=== PATIENT | male | born 1950 | race Caucasian/White ===

== ENCOUNTER 2023-11-02 06:38 | Observation (INO) ==
--- NOTE | 2023-08-24 10:44 | PAT Medication Instructions ---
Medication Instructions Date of Service August 24, 2023 Home Medications acetaminophen 325 mg tablet (Tylenol) 325 mg PO QID PRN Pain amlodipine 5 mg tablet 5 mg PO HS aspirin 81 mg tablet,delayed release (Adult Low Dose Aspirin) 81 mg PO QAM atorvastatin 40 mg tablet 40 mg PO HS carvedilol 25 mg tablet 50 mg PO BID ramipril 10 mg capsule 10 mg PO BID Allergy Pill 1 tab PO DAILY PRN Allergy Symptoms fluticasone propionate 50 mcg/actuation nasal spray,suspension 2 spray intranasal DAILY PRN Congestion MEDICATION INSTRUCTIONS: Continue as directed fluticasone propionate 50 mcg/actuation nasal spray,suspension 2 spray intranasal DAILY PRN Congestion ASK your prescriber and surgeon aspirin 81 mg tablet,delayed release (Adult Low Dose Aspirin) 81 mg PO QAM DO NOT take the morning of surgery ramipril 10 mg capsule 10 mg PO BID Allergy Pill 1 tab PO DAILY PRN Allergy Symptoms Take morning of surgery With a small sip of water, OTHERWISE NOTHING TO EAT OR DRINK AFTER MIDNIGHT: carvedilol 25 mg tablet 50 mg PO BID acetaminophen 325 mg tablet (Tylenol) 325 mg PO QID PRN Pain Take evening before surgery carvedilol 25 mg tablet 50 mg PO BID acetaminophen 325 mg tablet (Tylenol) 325 mg PO QID PRN Pain atorvastatin 40 mg tablet 40 mg PO HS amlodipine 5 mg tablet 5 mg PO HS ramipril 10 mg capsule 10 mg PO BID Other Notes If you have any questions please call us at [phone] or [phone] or [phone] or [phone]
--- NOTE | 2023-09-10 14:42 | Anesthesiology Consultation ---
Date of Service September 10, 2023 Assessment & Plan (1) Encounter for pre-operative examination: Chart Review Chart Review: Acceptable Risk for Surgery (pending response from PCP regarding abnormal CXR ) and Patient seen in Pre Admission Testing - Please send optimization form to PCP re: abnormal CXR- will need response (Dr. Heladio Fang) - Discussed cardiac history with Dr. Whitehead- patient's 03/2023 ECHO showed no acute issues; follows routinely with cardio- patient can proceed as scheduled. - Patient is NOT an ideal OPJ candidate (currently 23 hour obs) Per PAT appt on 09/10/23, no recent illness/disease exposures, illness related symptoms, or recent illness/disease positive tests. Will leave to surgeon's discretion if preop Covid testing needed Patient last seen by cardiology 04/17/23= Seen for follow up on CAD. CAD- s/p 5 vessel CABG 2009. No anginal complains. EKG reviewed. No change from previous studies. On appropriate medical therapy. Hx of ischemic CM- resolved. EF 03/2023 with normal EF. Cardiac risk factors (HTN and HLD)- management through PCP. Continue current meds. Follow up in one year History Surgery Operation Date: 10/12/23 11:30 Proposed Procedures p Left Anterior Total Hip Arthroplasty - Shane Hicks, DO Height/Weight Height: 5 ft 10 in Weight: 128.5 kg Allergies Allergy/AdvReac Type Severity Reaction Status Date / Time cefuroxime [From Ceftin] Allergy Intermediate Rash Verified 08/23/23 15:02 Corticosteroids Allergy Itching Verified 09/10/23 14:44 (Glucocorticoids) Medications Home Medications Medication Instructions Recorded Confirmed Last Taken acetaminophen 325 mg tablet 325 mg PO QID PRN Pain 08/07/23 08/23/23 Unknown (Tylenol) amlodipine 5 mg tablet 5 mg PO HS 08/07/23 08/23/23 Unknown aspirin 81 mg tablet,delayed 81 mg PO QAM 08/07/23 08/23/23 Unknown release (Adult Low Dose Aspirin) atorvastatin 40 mg tablet 40 mg PO HS 08/07/23 08/23/23 Unknown carvedilol 25 mg tablet 50 mg PO BID 08/07/23 08/23/23 Unknown ramipril 10 mg capsule 10 mg PO BID 08/07/23 08/23/23 Unknown Allergy Pill 1 tab PO DAILY PRN Allergy Symptoms 08/23/23 08/23/23 Unknown fluticasone propionate 50 2 spray intranasal DAILY PRN 08/23/23 08/23/23 Unknown mcg/actuation nasal Congestion spray,suspension Past Medical History Medical History (Updated 09/11/23 @ 15:28 by Amy Denis PA-C) CAD (coronary artery disease) s/p 5 vessel CABG with aneurysm repair 2009 Hyperlipidemia Hypertension Left ventricular aneurysm s/p repair with 5 vessel CABG 2009 Leukemia in remission dx 2014, had chemo at [facility] and then maintenance chemo in [place]; currently in remission for since ~2020 Sleep apnea unable to tolerate device Exercise / Class Metabolic Activity III < 4 Walking/Shop/Light housework (no chest pain or SOB with flat surface ambulation ) Past Surgical History Surgical History (Updated 09/06/23 @ 10:21 by Amy Denis PA-C) History of bone marrow biopsy History of cardiac cath 2009, heart symptoms, ph [facility], no stents>scheduled for CABG x5 vessels; f/u ph [place] cardio. History of esophagogastroduodenoscopy (EGD) Hx laparoscopic cholecystectomy Hx of bilateral cataract extraction Hx of CABG 2009, ph [facility], x5 vessels + aneurysm repair; f/u ph [place] cardiology Hx of colonoscopy Hx of tonsillectomy Hx of umbilical hernia repair Past Anesthesia History No Hx of Anesthesia Complications and No Family Hx of Anesthesia Complications History of PONV No Hx of PONV and No Hx of Motion Sickness Social History Smoking Status: Former smoker Do You Dip or Chew Tobacco: No (quit 2014; advised) Smoking End Date: 2014 Hx Alcohol Use: Yes (quit 1995) Hx Substance Use: No substance use type: does not use Review of Systems - Occ reflux- diet dependent- improved with OTC antacids - Hx of blood transfusions - during chemo treatments Patient denies chest pain, shortness of breath, dyspnea on exertion, cough, wheezing, palpitations. No hx of seizures, stroke, AL. No hx of blood clots Physical Exam Vital Signs VITALS BP 145/68 P 60 TEMP 98.2 SP02 95% RESP 16 Constitutional no acute distress ENMT Mouth: no TMJ clicking Thyromental Distance: > or= 3.5 Finger Breadths (3.5) Mallampati Class: III Mouth / Teeth: 2 1. Small chip/crack- getting fixed 09/19/23 Missing molars/side tooth Neck + limited neck extension (mild) Respiratory normal respiratory effort; no respiratory distress Auscultation: lungs clear to auscultation bilaterally; no wheezes Cardiovascular Rate/Rhythm: regular rate and regular rhythm Heart Sounds: no murmur Vessels: no carotid bruit Musculoskeletal Spine: no pain with cervical ROM Extremities: extremities normal to inspection Psychiatric Orientation: alert Lab Results Anesthesia Preop Results Results Anesthesia Widget: 2 WBC 7.79 K/ul (4.8-10.8) 09/10/23 Hgb 15.2 g/dl (14.0-18.0) 09/10/23 Hct 43.1 % (42.0-52.0) 09/10/23 Plt 121 K/uL (130-400) L 09/10/23 Na 138 mmol/L (136-145) 09/10/23 K 4.2 mmol/L (3.5-5.1) 09/10/23 Cl 105 mmol/L (98-107) 09/10/23 CO2 29 mmol/L (21-32) 09/10/23 BUN 16 mg/dl (6-23) 09/10/23 Creat 0.95 mg/dl (0.6-1.4) 09/10/23 Glucose Level 97 mg/dl (70-99(Fasting)) 09/10/23 PT 11.5 Seconds (9.0-12.0) 09/10/23 PTT 26 Seconds (21-31) 09/10/23 INR 1.1 (0.9-1.1) 09/10/23 Blood Type A Positive 09/10/23 Antibody Screen NEGATIVE 09/10/23 Testing Laboratory Results 08/17/23= HGB A1C: 6.1 Electrocardiogram Date: 09/10/23 Findings: + SB @ (58bpm) LAFB Possible inferior infarct, age undetermined Anterolateral infarct, age undetermined (Patient had EKG 04/17/23 at cardio appt that per cardio "reveals sinus bradycardia, old inferior/anterior infarct, IVCD, and ST abnormalities which are unchanged compared to previous studies") Chest X-Ray Date: 09/10/23 FINDINGS: PA and lateral chest radiographs are obtained. No prior studies are available for comparison at the time of dictation. The patient is status post midline sternotomy. The heart is enlarged noting atherosclerotic calcification of the thoracic aorta. The pulmonary vasculature is noncontrast. There are scattered calcified granulomas. Indeterminate airspace opacities project over the left upper lung. No lobar consolidation or pleural effusion is identified. There is no pneumothorax. The skeletal structures are osteopenic. The bony thorax appears intact. Post cystectomy clips are noted in the upper abdomen. IMPRESSION: 1. Cardiomegaly without radiographic evidence of congestive failure. 2. Indeterminate airspace opacities project over the left upper lung. A follow- up chest CT is recommended for further assessment. Echocardiogram Date: 04/09/23 EF: 55% LV Function: normal RWMA: + none Other Findings: + diastolic dysfunction (Grade II); no LVH RVSP 30mmHg Mildly calcified MV annulus AV thickening consistent with sclerosis. No evidence of AV stenosis
--- NOTE | 2023-10-11 07:20 | History & Physical Report ---
Date of Service October 11, 2023 Assessment & Plan (1) Osteoarthritis of left hip: We will proceed with a left anterior total of arthroplasty. Postoperatively he will be started on aspirin for DVT prophylaxis and kept overnight in the hospital for postop medical management. He plans to go to [facility] therapy upon discharge. History of Present Illness Chief Complaint: Osteoarthritis left hip. Primary Care Provider: Heladio Cardenas is a pleasant 73-year-old male, who has been dealing with chronic increasing left hip and groin pain. It bothers him when he gets in and out of a car. It hurts walking up and down stairs. It is pretty much affecting his daily life and his quality of life. He has been seeing another provider. He mcdonald s had conservative treatment including injections, therapy, activity modifications, and anti-inflammatories. Unfortunately, he is still struggling with the hip. MRI and clinical examination been diagnostic for advanced arthritis of the left hip. After failing conservative treatment, he has elected to proceed with a left total hip arthroplasty. Allergies Allergy/AdvReac Type Severity Reaction Status Date / Time cefuroxime [From Ceftin] Allergy Intermediate Rash Verified 08/23/23 15:02 Corticosteroids Allergy Itching Verified 09/10/23 14:44 (Glucocorticoids) Home Medications Medication Instructions Recorded Confirmed Type acetaminophen 325 mg tablet 325 mg PO QID PRN Pain 08/07/23 08/23/23 History (Tylenol) amlodipine 5 mg tablet 5 mg PO HS 08/07/23 08/23/23 History aspirin 81 mg tablet,delayed 81 mg PO QAM 08/07/23 08/23/23 History release (Adult Low Dose Aspirin) atorvastatin 40 mg tablet 40 mg PO HS 08/07/23 08/23/23 History carvedilol 25 mg tablet 50 mg PO BID 08/07/23 08/23/23 History ramipril 10 mg capsule 10 mg PO BID 08/07/23 08/23/23 History Allergy Pill 1 tab PO DAILY PRN Allergy Symptoms 08/23/23 08/23/23 History fluticasone propionate 50 2 spray intranasal DAILY PRN 08/23/23 08/23/23 History mcg/actuation nasal Congestion spray,suspension Past Med/Surg History Problem List Osteoarthritis of left hip Medical History Left ventricular aneurysm s/p repair with 5 vessel CABG 2009 CAD (coronary artery disease) s/p 5 vessel CABG with aneurysm repair 2009 Leukemia in remission dx 2014, had chemo at [place] and then maintenance chemo in [place]; currently in remission for since ~2020 Sleep apnea unable to tolerate device Hyperlipidemia Hypertension Surgical History History of bone marrow biopsy Hx of umbilical hernia repair Hx laparoscopic cholecystectomy History of esophagogastroduodenoscopy (EGD) Hx of colonoscopy Hx of bilateral cataract extraction Hx of tonsillectomy History of cardiac cath 2009, heart symptoms, ph [facility], no stents>scheduled for CABG x5 vessels; f/u ph [place] cardio. Hx of CABG 2009, ph [facility], x5 vessels + aneurysm repair; f/u ph [place] cardiology Social History Smoking Status: Former smoker Smoking End Date: 2014; Second Hand Exposure: No (hx); Do You Dip or Chew Tobacco: No (quit 2014; advised); Tobacco Cessation Education Requested by Patient: No Hx Alcohol Use: Yes (quit 1995) Hx Substance Use: No Preferred Language: Amharic Communication Ability: Effective Conflicts Analyst Required: No Beliefs That Will Affect Care: None Current Living Situation: Spouse Other Information That Helps Us Care for You: No Feels Safe at Home: Yes Safety Concerns: Feels Safe At This Time Assistive Devices: Glasses Review of Systems All systems reviewed & are unremarkable except as noted in HPI & below. Physical Exam On physical examination left hip, he has decreased range of motion. He has pain with forced internal and external rotation. All of his pain is located in the groin.. Constitutional WD/WN, vitals as above Eyes PERRL, conjunctivae normal, anicteric sclerae ENMT external ear and nose normal, oropharynx normal Neck trachea midline, no thyromegaly Respiratory normal respiratory effort Cardiovascular RRR, no murmur, no edema Gastrointestinal (Abdomen) normal bowel sounds, soft, nontender, no hepatosplenomegaly Psychiatric A+Ox3, euthymic affect Results & Data Results & Data Laboratory Results . Diagnostic Findings X-rays and MRI of the left hip show advanced osteoarthritis with joint space narrowing osteophyte formation and [id number] tubulation. PG Care Time/CCT Total # of Minutes Spent Total Time Spent with Patient: Total time spent is greater than 50% in coordination of care (as documented) at patient's floor/unit and/or counseling patient: Coding Level of Care Code None Diagnoses Osteoarthritis of left hip M16.12
--- NOTE | 2023-11-01 12:30 | History & Physical Report ---
Date of Service November 01, 2023 Assessment & Plan (1) Osteoarthritis of left hip: We will proceed with the left anterior total of arthroplasty. Postoperatively he will be started on aspirin for DVT prophylaxis and kept overnight in the hospital for postop medical management. He plans to use [facility] physical therapy upon discharge. History of Present Illness Chief Complaint: Osteoarthritis of the left hip. Primary Care Provider: Heladio Cardenas is a pleasant 73-year-old male, who has been dealing with chronic increasing left hip and groin pain. It bothers him when he gets in and out of a car. It hurts walking up and down stairs. It is pretty much affecting his daily life and his quality of life. He has been seeing another provider. He has had conservative treatment including injections, therapy, activity modifications, and anti-inflammatories. Unfortunately, he is still struggling with the hip. X-rays include a examination be diagnostic for advanced arthritis of the left hip. After failed conservative treatment, he has elected to proceed with a left anterior total of arthroplasty. Allergies Allergy/AdvReac Type Severity Reaction Status Date / Time cefuroxime [From Ceftin] Allergy Intermediate Rash Verified 10/30/23 08:42 Corticosteroids Allergy Mild Itching Verified 10/30/23 08:42 (Glucocorticoids) prednisone Allergy skin Verified 10/30/23 09:32 redness and itching Home Medications Medication Instructions Recorded Confirmed Type acetaminophen 325 mg tablet 325 mg PO QID PRN Pain 08/07/23 10/30/23 History (Tylenol) amlodipine 5 mg tablet 5 mg PO HS 08/07/23 10/30/23 History aspirin 81 mg tablet,delayed 81 mg PO QAM 08/07/23 10/30/23 History release (Adult Low Dose Aspirin) atorvastatin 40 mg tablet 40 mg PO HS 08/07/23 10/30/23 History carvedilol 25 mg tablet 50 mg PO BID 08/07/23 10/30/23 History ramipril 10 mg capsule 10 mg PO BID 08/07/23 10/30/23 History fluticasone propionate 50 2 spray intranasal DAILY PRN 08/23/23 10/30/23 History mcg/actuation nasal Congestion spray,suspension levocetirizine 5 mg tablet (Xyzal) 5 mg PO DAILY PRN allergies 10/30/23 10/30/23 History Past Med/Surg History Problem List Osteoarthritis of left hip Medical History Osteoarthritis of left hip Left ventricular aneurysm s/p repair with 5 vessel CABG 2009 CAD (coronary artery disease) s/p 5 vessel CABG with aneurysm repair 2009 Leukemia in remission dx 2014, had chemo at [place] and then maintenance chemo in [place]; currently in remission for since ~2020 Sleep apnea unable to tolerate device Hyperlipidemia Hypertension Surgical History History of bone marrow biopsy Hx of umbilical hernia repair Hx laparoscopic cholecystectomy History of esophagogastroduodenoscopy (EGD) Hx of colonoscopy (2014) Hx of bilateral cataract extraction Hx of tonsillectomy History of cardiac cath (2009) 2009, heart symptoms, ph [facility], no stents>scheduled for CABG x5 vessels; f/u ph [place] cardio. Hx of CABG (2009) 2009, ph [facility], x5 vessels + aneurysm repair; f/u [facility] cardiology Social History Smoking Status: Former smoker Smoking End Date: smoked and chewed snuff, quit 2014 (> 1 ppd); Second Hand Exposure: No; Do You Dip or Chew Tobacco: No; Tobacco Cessation Education Requested by Patient: No Hx Alcohol Use: No Hx Substance Use: No Preferred Language: Wolof Communication Ability: Effective Certified Pharmacy Technician Required: No Beliefs That Will Affect Care: None Current Living Situation: Spouse Other Information That Helps Us Care for You: No Feels Safe at Home: Yes Safety Concerns: Feels Safe At This Time Assistive Devices: Glasses Assistive Devices Comment: readers Review of Systems All systems reviewed & are unremarkable except as noted in HPI & below. Physical Exam Physical examination of the left hip shows decreased range of motion and pain with internal and external rotation.. Constitutional WD/WN, vitals as above Eyes PERRL, conjunctivae normal, anicteric sclerae ENMT external ear and nose normal, oropharynx normal Neck trachea midline, no thyromegaly Respiratory normal respiratory effort Cardiovascular RRR, no murmur, no edema Gastrointestinal (Abdomen) normal bowel sounds, soft, nontender, no hepatosplenomegaly Psychiatric A+Ox3, euthymic affect Results & Data Results & Data Laboratory Results . Diagnostic Findings X-rays of the left hip show advanced osteoarthritis with joint space narrowing, osteophyte formation, and [id number] articulation PG Care Time/CCT Total # of Minutes Spent Total Time Spent with Patient: Total time spent is greater than 50% in coordination of care (as documented) at patient's floor/unit and/or counseling patient: Coding Level of Care Code None Diagnoses Osteoarthritis of left hip M16.12
[~2023-11-02 06:38] MED LIST: ACETAMINOPHEN 500 MG TAB PO SCH; ALLERGY Noted to ORDERED Medication SCH; BUPIVACAINE 0.5 % 5 MG/1 ML PF 10ML VIAL ONE; FAMOTIDINE 20 MG TAB PO SCH; GABAPENTIN 300 MG CAP PO SCH; LR 500ML BOLUS, THEN 15ML/HR IV SCH; LR 60ML/HR IV SCH; ROPIV 0.5% 246mg, Ketorolac 30mg, EPINEPHrine 0.5mg in NSS INFIL SCH; TRANEXAMIC ACID 1,000 MG **IV Intra-op IV SCH; TRANEXAMIC ACID 1,000 MG **IV Pre-op IV SCH; ceFAZolin 3000MG 3,000 MG/72.5 ML BAG IV SCH; dexAMETHasone**PF** 10 MG/ML VIAL IV SCH
[2023-11-02] MEDS: ACETAMINOPHEN 500 MG TAB PO SCH ×2 (07:30→15:31)
[2023-11-02] MEDS: LR 500ML BOLUS, THEN 15ML/HR IV SCH (07:30)
[2023-11-02] MEDS: LR 60ML/HR IV SCH (07:30)
[2023-11-02] MEDS: FAMOTIDINE 20 MG TAB PO SCH (07:30)
[2023-11-02] MEDS: GABAPENTIN 300 MG CAP PO SCH (07:30)
[2023-11-02] MEDS: dexAMETHasone**PF** 10 MG/ML VIAL ONE (08:35)
[2023-11-02] MEDS ORDERED: Nursing to Pharmacy Communication SCH ×3 (08:45→18:00)
[2023-11-02] MEDS ORDERED: DexMEDEtomidine HCL IV 100 MCG/ML VIAL IV ONE (08:55)
[2023-11-02] MEDS ORDERED: fentaNYL citrate PF 100 MCG/2 ML VIAL ONE (08:55)
[2023-11-02] MEDS ORDERED: MIDAZOLAM HCL 1 MG/ML 2ML VIAL ONE (08:55)
[2023-11-02] MEDS: TRANEXAMIC ACID 1,000 MG **IV Pre-op IV SCH (08:58)
--- NOTE | 2023-11-02 09:06 | History & Physical Bridge Note ---
Date of Service November 02, 2023 History & Physical Bridge Note I have examined the patient, reviewed the History & Physical and in the interval since the performance of the History & Physical I have noted the following changes of clinical significance: no changes noted
[2023-11-02] MEDS: ceFAZolin 2,000 MG/15 ML IV PUSH IV ONE (09:09)
[2023-11-02] MEDS ORDERED: PROPOFOL IV EMULSION 10 MG/ML 20 ML VIAL IV ONE ×2 (09:26→10:07)
[2023-11-02] MEDS ORDERED: ONDANSETRON INJ 2 MG/ML 2 ML VIAL ONE (09:26)
[2023-11-02] MEDS ORDERED: ePHEDrine sulfate 50 MG/5 ML SYR ONE (09:35)
[2023-11-02] MEDS ORDERED: PHENYLEPHRINE 100MCG/ML 10ML SYR IV ONE (09:35)
[2023-11-02] MEDS: ORTHO JOINT ANESTHETIC ONE (09:50)
[2023-11-02] MEDS: ROPIV 0.5% 246mg, Ketorolac 30mg, EPINEPHrine 0.5mg in NSS INFIL SCH (09:53)
--- NOTE | 2023-11-02 10:35 | Operative Report ---
PG Post Operative Report Pre & Post Diagnosis Operation Date: 11/02/23 09:00 Pre-Op Diagnosis: Left Hip Degenerative Joint Disease Post-Op Diagnosis: Left Hip Degenerative Joint Disease I identified the patient and participated in the time-out.: Yes Procedure Operation Date: 11/02/23 09:00 Actual Procedures p Left Anterior Total Hip Arthroplasty(Left) - Shane Hicks DO Surgeon Shane Hicks DO Assistant Cook Shane Gamez PA-C Estimated Blood Loss 250 Findings Consistent with Post-Op Diagnosis Specimens Left femoral head Description of Procedure Implants used I used a [employer]immer[employer]omet total hip arthroplasty system with a size 6 standard offset Avenir Complete stem, a 56 mm G7 cup with a 25mm screw, an E1 polyethylen e liner, a 40 mm ceramic head with a 0 neck. Ronald arrived at the hospital for the above procedure. He was seen in the preoperative holding area and the operative extremity was identified and signed. He was given a spinal anesthetic, a preoperative antibiotic, and TXA. He was then taken back to the operating room and laid on the table in the supine position. He was given basic sedation. The operative leg was secured to a Puristst leg positioner. The hip was then prepped and draped in sterile fashion. A timeout was done and the patient and the operative extremity was properly identified. An anterior approach was used. Dissection was taken down through the fascia and the tensor muscle belly was retracted laterally and the rectus was retracted medially. The circumflex vessels were identified and ligated. The capsule was then incised and tagged for later repair. The femoral neck was then cut and the femoral head was removed. The acetabulum was exposed. Time was spent doing a c omplete circumferential labral release. Sequential reaming of the acetabulum up to a size 55 reamer was done. Final reamings were done under fluoroscopy to ensure appropriate version. A Biomet 56 mm G7 cup was then impacted into place. A single 25 mm screw was placed. The E1 polyethylene liner was then snapped into place. Surrounding soft tissues were then injected with 100 cc of an orthopedic pain control cocktail. The proximal femur was then exposed. Sequential broaching up to a size 6 broach was done. Off that broach a size 40 head with a 0 neck was trialed. The hip was reduced and fluoroscopic images showed anatomic alignment of the implants in acceptable length. The broach was removed. The final size 6 standard offset Avenir Complete stem was then impacted into place. A ceramic 40 mm head with a 0 neck was then impacted onto the stem and the hip was reduced. Final fluoroscopic images showed anatomic alignment of the hip. The capsule was then closed with #1 Vicryl suture. A dilute betadyne lavage was then done for 3 minutes. The joint was then irrigated with normal saline solution. The fascia was closed with #1 PDS suture. Skin was closed with 2-0 Vicryl, sim, and a Silverlon dressing. He was then transferred to a hospital bed and taken to the post anesthesia care unit in stable condition. He tolerated the procedure well. Shane Gamez PA-C, was present for the entire procedure. He was critical for patient positioning, prepping, draping, retraction exposure, wound closure and application of sterile dressing. I attest to the content of the Intraoperative Record and any orders documented therein. Any exceptions are noted below.
[2023-11-02] MEDS: TRANEXAMIC ACID 1,000 MG **IV Intra-op IV SCH (10:41)
--- NOTE | 2023-11-02 11:11 | Fluoroscopy Report ---
INTRAOPERATIVE RADIOGRAPH CLINICAL HISTORY: Left hip arthroplasty. Fluoro time: 16 seconds Ka,r: 3.18 mGy FINDINGS: A single spot fluoroscopic view of the left hip is presented. A bipolar left hip arthroplas ty is in near anatomic alignment. A single cortical lag screw transfixes the acetabular cup. There is no evidence of acute fracture on the provided image. IMPRESSION: Intraoperative image from a left hip arthroplasty procedure as above. Electronically signed by: Toby Mcclellan M.D. 11/02/2023 11:10 AM
--- NOTE | 2023-11-02 11:43 | Anesthesiology Progress Note ---
Date of Service November 02, 2023 Anesthesia Post Procedure Vital Signs Vital Signs: Temp Pulse Pulse Resp BP Pulse Ox O2 Del Method 11/02/23 11:25 36.4 C L 56 L 14 129/65 92 Room Air 11/02/23 11:15 57 L 14 131/68 98 Oxymask 11/02/23 11:05 58 L 14 116/65 96 Oxymask 11/02/23 10:55 36.8 C 58 L 12 104/57 L 96 Oxymask 11/02/23 07:05 57 L 20 161/71 H 96 Room Air O2 Flow Rate 11/02/23 11:25 11/02/23 11:15 2 11/02/23 11:05 4 11/02/23 10:55 6 11/02/23 07:05 Notes Mental Status: alert / awake / arousable Patient Amnestic to Procedure: Yes Nausea / Vomiting: adequately controlled Pain: adequately controlled Airway Patency, RR, SpO2: stable & adequate BP & HR: stable & adequate Hydration State: stable & adequate Neuraxial Anesthesia: was administered and sensory block is resolving Anesthetic Complications: no major complications apparent
[2023-11-02] MEDS: dexAMETHasone**PF** 10 MG/ML VIAL IV SCH (12:43)
[2023-11-02] MEDS ORDERED: MAGNESIUM HYDROXIDE SUSP 30 ML UDC PO PRN (12:44)
[2023-11-02] MEDS ORDERED: NALOXONE HCL 0.4 MG/1 ML VIAL/CARP IV PRN (12:44)
[2023-11-02] MEDS ORDERED: bisacodyL 10 MG SUPP PR PRN (12:44)
[2023-11-02] MEDS ORDERED: FLUTICASONE PROPIONATE NA SPR 16 GM BTL PRN (12:44)
[2023-11-02] MEDS ORDERED: METOCLOPRAMIDE HCL INJ 5 MG/ML 2 ML VIAL IV PRN (12:44)
[2023-11-02] MEDS ORDERED: ONDANSETRON INJ 2 MG/ML 2 ML VIAL IV PRN (12:44)
[2023-11-02] MEDS: ceFAZolin 3000MG 3,000 MG/72.5 ML BAG IV SCH (12:57)
[2023-11-02] MEDS ORDERED: CETIRIZINE HCL 10 MG TABLET PO PRN (13:00)
[2023-11-02] MEDS: SODIUM CHLORIDE 0.9% 1,000 ML IV SCH (13:07)
--- NOTE | 2023-11-02 13:28 | XRay Report ---
XR hip 1V LT w pelvis CLINICAL HISTORY: IN PACU - Post Surgical TECHNIQUE: 1 view of the left hip and single frontal view of the pelvis were obtained. Comparison: Comparison is made to hip fluoroscopy 11/02/2023 FINDINGS: Patient is status post total hip arthroplasty with expected postsurgical changes including soft tissu e swelling and subcutaneous emphysema. IMPRESSION: Expected postoperative appearance status post placement of total hip arthroplasty. ACT 112: Negative or not required by law. Electronically signed by: Alex Gordon M.D. 11/02/2023 1:27 PM
[2023-11-02] MEDS: KETOROLAC TROMETHAMINE 15 MG/ML VIAL IV SCH ×2 (14:02→20:11)
[2023-11-02] MEDS: ceFAZolin 2000MG 2,000 MG/15 ML SYR IV SCH (17:50)
[2023-11-02] MEDS: DOCUSATE SODIUM 100 MG CAP PO SCH (20:10)
[2023-11-02] MEDS: ASPIRIN 81 MG ECTAB PO SCH (20:10)
[2023-11-02] MEDS: carvediloL 25 MG TAB PO SCH (20:11)
[2023-11-02] MEDS: amLODIPine BESYLATE 5 MG TAB PO SCH (20:11)
[2023-11-02] MEDS: ENALAPRIL MALEATE 10 MG TAB PO SCH (20:11)
[2023-11-02] MEDS: SENNA 8.6 MG TAB PO SCH (20:11)
[2023-11-02] MEDS: ATORVASTATIN 40 MG TAB PO SCH (20:12)
[2023-11-03 03:25] VITALS: RESP 16
[2023-11-03] MEDS: oxyCODONE HCL IR 5 MG TAB (IMMEDIATE RELEASE) PO PRN (03:59)
[2023-11-03] MEDS: HYDROmorphone INJ 0.5 MG/0.5 ML SYR IV PRN (05:51)
[2023-11-03 07:26] VITALS: PULSE 70; TEMP 98.1; O2SAT 97
[2023-11-03] MEDS: MULTIVITAMIN TAB PO SCH (08:49)
[2023-11-03] MEDS: dexAMETHasone 4 MG TAB PO SCH (08:50)
--- NOTE | 2023-11-03 09:06 | Orthopedic Progress Note ---
Date of Service November 03, 2023 Assessment & Plan (1) Status post left hip replacement: Making progress as expected on postop day 1 from a left anterior approach total hip arthroplasty with Dr. Hicks. Continue the plan of care with the total joint pathway. Plan for discharge home today with PT and OT evaluations this morning. Subjective Reports no issues. He was out of bed and in the hallways walking this morning at 4 AM. Pain is well-controlled. He does state that the dressing is pinching him at the belt line and feels like it is burning a little bit. He is concerned because he has adhesive sensitivities. Review of Systems All systems reviewed & are unremarkable except as noted in HPI & below. Physical Exam Left hip: The dressing is clean and dry and intact. There is no erythema about the dressing. Does not bother him down distally on the thigh. The site of concern is at his belt line increased. This is likely from the incisional pain. Otherwise he is DNVI with positive DF/PF/EHL. Constitutional WD/WN, vitals as above no acute distress and not intoxicated appearing Respiratory normal respiratory effort; no labored breathing Cardiovascular Extremities: normal capillary refill Results & Data Results & Data Laboratory Results . Diagnostic Findings . PG Care Time/CCT Total # of Minutes Spent Total Time Spent with Patient: Total time spent is greater than 50% in coordination of care (as documented) at patient's floor/unit and/or counseling patient: Coding Level of Care Code 14961 Post Operative Follow-Up Diagnoses Status post left hip replacement Z96.642
[2023-11-03 10:44] VITALS: BP 130/64
== END 2023-11-03 11:21 | disposition home or self-care (01) ==
LOC: ASU 06:38 → 3W 06:38